=== PATIENT | male | born 1965 | race Caucasian/White ===

== ENCOUNTER → 2020-08-27 | Outpatient (CLI) | payer BC, OTHER ==
[~2020-08-27] MED LIST: ATROVENT HFA12.9 GM INH; DOXYCYCLINE HY100 M2 PO; MEDROL DOSEPAK 24 MG PO; TESSALON PERLE100 MG PO
== END ==
LOC: MRI 08-16 08:30 → CT 08-17 09:30 → MRI 08-20 10:30 → CT 08-20 11:30 → MRI 11:00
DX: M51.16 Intervertebral disc disorders with radiculopathy, lumbar region (principal); M48.061 Spinal stenosis, lumbar region without neurogenic claudication; Z98.890 Other specified postprocedural states
CPT/HCPCS: 72131; 72158; A9577

== ENCOUNTER → 2021-07-29 | Outpatient (CLI) | payer BC | LOC: MRI 07-20 15:00 | DX: M51.16 Intervertebral disc disorders with radiculopathy, lumbar region (principal); M25.78 Osteophyte, vertebrae | CPT/HCPCS: 72158; A9577 ==